=== PATIENT | female | born 1960 | race Caucasian/White ===

== ENCOUNTER → 2017-03-25 | Outpatient (CLI) | payer BC ==
[~2017-03-25] MED LIST: ANAPROX DS550 MG PO; DIFLUCAN150 MG PO; SEPTRA DS 800 M1 TAB PO
== END | disposition home or self-care (01) ==
LOC: MAMMO 13:34
DX: Z12.31 Encounter for screening mammogram for malignant neoplasm of breast (principal)

== ENCOUNTER → 2017-03-31 | Outpatient (CLI) | payer BC | END | disposition home or self-care (01) | LOC: MAMMO 10:52 | DX: R92.8 Other abnormal and inconclusive findings on diagnostic imaging of breast (principal) ==